=== PATIENT | female | born 1990 | race Caucasian/White ===

== ENCOUNTER 2016-11-11 18:25 | Emergency (ER) | payer BC, OTHER ==
[2016-11-11 18:30] VITALS: RESP 16; TEMP 97.5; O2SAT 97
--- NOTE | 2016-11-11 18:53 | EDPHY ---
H & P Stated Complaint: fall hit head last night & pills making me feel wierd Time Seen by Provider: 11/11/16 18:34 HPI/ROS: CHIEF COMPLAINT: Head injury last night HISTORY OF PRESENT ILLNESS: 26-year-old female with no coagulopathic disorder or anticoagulant use states that last evening she was drinking alcohol at a bar , sustained a mechanical fall hitting the right frontal region of her head with no loss of consciousness, no amnesia, no seizure activity, no nausea or vomiting. She has a mental health history significant for depression, anxiety, attention deficit hyperactivity disorder. She took her usual dose of Adderall this morning however this afternoon she has took another dose. She is not completely clear why she took this other does I think I would just being stupid . She states in retrospect that she believed that the previous dose of Adderall had been wearing off. She is quite clear however that this was not a self injurious attempt, denies suicidal homicidal ideation. Throughout the day she has been feeling dizzy, nonprogressive non thunderclap headache, difficulty concentrating. She has had no slurred speech, gait instability, visual disturbance, nausea, vomiting, C-spine pain, peripheral paresthesia, weakness, numbness, abdominal pain. REVIEW OF SYSTEMS: A ten point review of systems was performed and is negative with the exception of the items mentioned in the HPI PAST MEDICAL/SURGICAL HISTORY: Depression, anxiety, attention deficit hyperactivity disorder no relevant medical/surgical history SOCIAL HISTORY: denies alcohol use at time of incident PHYSICAL EXAM 1) GENERAL: Well-developed, well-nourished, alert and oriented. Appears to be in no acute distress. Answering questions appropriately. 2) HEAD: Normocephalic, right frontal abrasion measuring 4 cm x 3 cm. No hematoma. No depression. 3) HEENT: Pupils equal, round, reactive to light bilaterally. Negative Horners. Nasopharynx, oropharynx, clear. No deformity or angulation of nose. No septal hematoma. No rhinorrhea. No oral trauma. Ears bilaterally with normal tympanic membranes. No hemotympanum. No fluid or blood in the external auditory canal. No raccoon eyes. No Collins sign. Teeth are normally aligned with no gross malocclusion, TMJ bilaterally nontender, facial bones nontender including the zygomatic arch, maxilla mandible. 4) NECK: No cervical collar is on. Posterior cervical spine is nontender, no stepoff, no effusion. Full range of motion which does not elicit any midline cervical spine pain, no posterior midline tenderness, no step-off. 5) LUNGS: Clear to auscultation bilaterally, no wheezes, no rhonchi, no retractions. No obvious signs of trauma. No chest wall pain. No flaring, no grunting. Moving symmetrically. No crepitus. 6) HEART: Regular rate and rhythm, 7) ABDOMEN: No guarding, no rebound, no focal tenderness, no peritoneal signs, no signs of trauma, no ecchymosis 8) MUSCULOSKELETAL: Moving all extremities, no focal areas of tenderness, no obvious trauma. 9) BACK: No midline vertebral tenderness, no fluctuance, no step-off, no obvious trauma, no visual or palpable abnormality. 10) SKIN: No laceration. No abrasion 11) psychiatric: Answering questions appropriately, calm, cooperative 12) NEURO: Awake, alert, and oriented to person, place and time. Answers questions appropriately. There were no obvious focal neurologic abnormalities. No cerebellar dysfunction. . Normal steady gait. Upper and lower extremities bilaterally with strength 5 / 5, reflexes 2+. DIFFERENTIAL DIAGNOSIS: [ Not necessarily in any particular order, my differential diagnosis includes, but is not limited to, concussion, skull fracture, intraparenchymal contusion, subarachnoid, subdural and epidural hematoma. The patient understands that this diagnosis is provisional and can never be 100% accurate. - Personal History LMP (Females 10-55): Now Current Tetanus/Diphtheria Vaccine: Unsure Current Tetanus Diphtheria and Acellular Pertussis (TDAP): Unsure - Medical/Surgical History Hx Asthma: No Hx Chronic Respiratory Disease: No Hx Diabetes: No Hx Cardiac Disease: No Hx Renal Disease: No Hx Cirrhosis: No Hx Alcoholism: No Hx HIV/AIDS: No Hx Splenectomy or Spleen Trauma: No Other PMH: add, depression - Social History Smoking Status: Never smoked Constitutional: Initial Vital Signs Temperature (C) 36.4 C 11/11/16 18:28 Heart Rate 73 11/11/16 18:28 Respiratory Rate 16 11/11/16 18:28 Blood Pressure 146/99 H 11/11/16 18:28 O2 Sat (%) 97 11/11/16 18:28 O2 Delivery Mode Room Air Allergies/Adverse Reactions: No Known Allergies Allergy (Unverified 08/26/12 02:33) Home Medications: Medication Instructions Recorded Vivance 08/09/10 Adderall 08/26/12 Medical Decision Making - Diagnostics Imagin:31 p.m.: CT head negative per Radiology interpretation. ED Course/Re-evaluation: 7:02 pm: This patient has negative [place] head injury decision-making tool. I had a lengthy discussion with her discussed the indications risks benefits of CT imaging informed her that I do not think that the benefits outweigh the risks as I have a low pretest index suspicion for intracranial hemorrhage, contusion, skull fracture. However, patient requested CT imaging of the head. I believe her to have decision-making capacity. 7:32 p.m.: Re-evaluation, she remains a nonfocal neurologic exam. I think the patient can be discharged. We discussed head injury precautions, post concussive syndrome, 2nd impact syndrome. strict return precautions provided. She feels comfortable being discharged. Discussed case with Dr George in ER. Departure - Departure Disposition: Home, Routine, Self-Care Clinical Impression: Traumatic injury of head Qualifiers: Encounter type: initial encounter Qualifier Code: (S09.90XA) Unspecified injury of head, initial encounter Abrasion of forehead Qualifiers: Encounter type: initial encounter Qualifier Code: (S00.81XA) Abrasion of other part of head, initial encounter Condition: Good Instructions: Head Injury (ED) Additional Instructions: ALTHOUGH THERE IS NO EVIDENCE OF SERIOUS HEAD INJURY AT THIS TIME, DELAYED SIGNS CAN APPEAR 24 TO 48 HOURS AFTER INJURY. WE RECOMMEND THAT YOU DESIGNATE A FRIEND OR FAMILY MEMBER TO OBSERVE YOU OVER THE NEXT FEW DAYS TO ENSURE THAT YOUR CONDITION IS PROGRESSING NORMALLY. PLEASE RETURN TO THE EMERGENCY DEPARTMENT (ED) IMMEDIATELY IF YOU HAVE INCREASED HEADACHE, PERSISTENT HEADACHE , VOMITING, WEAKNESS, CONFUSION OR VISUAL PROBLEMS. WE RECOMMEND THAT YOU DO NOT RESUME CONTACT SPORTS OR ACTIVITIES THAT TAKE COORDINATION OR BALANCE SUCH SKIING OR RIDING A BICYCLE UNTIL CLEARED TO DO SO BY YOUR DOCTOR OR BY A NEUROLOGIST. Referrals: Kristie Torres MD [Medical Doctor] - 5-7 days, call for appt. (Dr Torres is a head injury specialist)
--- NOTE | 2016-11-11 19:37 | CT ---
CT Head Without Contrast Indication: Trauma. Technique 1.25 mm contiguous helical axial scanning through the head without contrast. Dose reduction technique was performed. Examination was reconstructed in coronal and sagittal planes. FINDINGS: Brain volume is normal. Ventricles and sulci are unremarkable. Sinuses are clear. Mastoid a ir cells are unremarkable. No fracture. Impression: Normal CT of the head. Critical results relayed by Dr. Echavarria to Bentley Baumann PA-C on November 11, 2016 at 1932 hours.
[2016-11-11 19:53] VITALS: BP 154/106; PULSE 64
== END 2016-11-11 19:50 | disposition home or self-care (01) ==
DX: S09.90XA Unspecified injury of head, initial encounter (principal); S00.81XA Abrasion of other part of head, initial encounter; W18.09XA Striking against other object with subsequent fall, initial encounter; Y92.89 Other specified places as the place of occurrence of the external cause; Y99.8 Other external cause status; Y93.89 Activity, other specified